=== PATIENT | male | born 1950 | race Two or more races ===

== ENCOUNTER 2021-02-20 10:18 | Emergency (ER) | payer BC, OTHER ==
[~2021-02-20] VITALS: Ht 165.1 cm; Wt 99.8 kg
[2021-02-20 11:25] VITALS: BP 167/92
[2021-02-20] MEDS ORDERED: HYDROcodone-ACET 5/325MG TAB PO ONE (12:00)
== END 2021-02-20 12:23 | disposition home or self-care (01) ==
LOC: ER 10:18
DX: S83.8X2A Sprain of other specified parts of left knee, initial encounter (principal); M16.12 Unilateral primary osteoarthritis, left hip; E11.9 Type 2 diabetes mellitus without complications; E78.5 Hyperlipidemia, unspecified; I10 Essential (primary) hypertension; Z96.642 Presence of left artificial hip joint; W18.39XA Other fall on same level, initial encounter; Y93.89 Activity, other specified; Y92.89 Other specified places as the place of occurrence of the external cause; Y99.8 Other external cause status
CPT/HCPCS: 73502; 73562

== ENCOUNTER 2021-03-02 17:15 | Emergency (ER) | payer BC ==
[~2021-03-02] VITALS: Ht 165.1 cm; Wt 97.5 kg
[2021-03-02] MEDS ORDERED: KETOROLAC TROMETH 60MG/2ML VIAL IM ONE (22:00)
[2021-03-02 22:47] VITALS: BP 145/75
== END 2021-03-02 22:59 | disposition home or self-care (01) ==
LOC: ER 17:15
DX: S83.92XA Sprain of unspecified site of left knee, initial encounter (principal); M16.12 Unilateral primary osteoarthritis, left hip; E11.9 Type 2 diabetes mellitus without complications; I10 Essential (primary) hypertension; E78.5 Hyperlipidemia, unspecified; W19.XXXA Unspecified fall, initial encounter; Y93.89 Activity, other specified; Y92.89 Other specified places as the place of occurrence of the external cause; Y99.8 Other external cause status
CPT/HCPCS: 96372; 99283; J1885